=== PATIENT | female | born 1965 | race Caucasian/White ===

== ENCOUNTER 2016-09-30 21:43 | Inpatient (IN) | payer MEDICAID ==
[2016-09-30 21:45] VITALS: BP 191/81; PULSE 59; RESP 16; TEMP 98.3; O2SAT 100
--- NOTE | 2016-09-30 22:49 | RADRPT ---
EXAM DATE/TIME: 09/30/2016 22:21 [facility] COMPARISON: No previous studies available for comparison. INDICATIONS : Ankle pain, slip and fall. MEDICAL HISTORY : None. SURGICAL HISTORY : None. ENCOUNTER: Initial ACUITY: 1 day PAIN SCORE: 10/10 LOCATION: Right ankle FINDINGS: Superior portions of the posterior tubercle of the calcaneus is fractured, including the distal Achil les insertion. The fracture is mildly comminuted with the 2 main fracture fragments measuring 15 and 19 mm in size. There is superior angulation and approximately 2 cm of superior displacement. CONCLUSION: Comminuted, superiorly displaced fracture of the posterior calcaneus including the Achilles insertion . Popeye Bryant MD on September 30, 2016 at 22:46 Board Certified Radiologist. This report was verified electronically.
[2016-10-01 02:26] VITALS: BP 169/77; PULSE 58; RESP 16; O2SAT 100
[2016-10-01] MEDS ORDERED: SODIUM CHLOR 0.9% 1000 ML INJ 1,000 ML IV ONE (02:30)
[2016-10-01] MEDS ORDERED: ONDANSETRON HCL 4 MG/2 ML VIAL IV ONE (02:30)
[2016-10-01] MEDS ORDERED: MORPHINE SULFATE 4 MG/ML INJ IV PUSH ONE (02:30)
[2016-10-01 03:02] LABS: AUTOMATED NEUTROPHIL # 4.7 TH/MM3 (1.8-7.7); BASOPHIL # 0.1 TH/MM3 (0-0.2); EOSINOPHIL # 0.2 TH/MM3 (0-0.4); EOSINOPHIL % 1.9 % (0.0-4.0); HEMATOCRIT 32.3 % (35.0-46.0); HEMO FLAGS DIFF FINAL; LYMPH % 40.7 % (9.0-44.0); MEAN CELL VOLUME 83.4 FL (80.0-100.0); MEAN CORPUSCULAR HEMOGLOBIN 29.7 PG (27.0-34.0); MEAN CORPUSCULAR HGB CONC 35.6 % (32.0-36.0); MONO % 7.7 % (0.0-8.0); NEUT % 48.7 % (16.0-70.0); PLATELET COUNT 254 TH/MM3 (150-450); RED BLOOD COUNT 3.87 MIL/MM3 (4.00-5.30); RED CELL DISTRIBUTION WIDTH 13.5 % (11.6-17.2); WHITE BLOOD COUNT 9.7 TH/MM3 (4.0-11.0)
--- NOTE | 2016-10-01 03:08 | RADRPT ---
EXAM DATE/TIME: 10/01/2016 02:36 [facility] COMPARISON: No previous studies available for comparison. INDICATIONS : Right lower leg pain. MEDICAL HISTORY : None. SURGICAL HISTORY : None. ENCOUNTER: Subsequent ACUITY: 1 day PAIN SCORE: 5/10 LOCATION: Right lower leg. FINDINGS: The shafts of the tibia and fibular are intact. There is a comminuted and displaced fracture of the posterior superior calcaneus with 2 displaced fragments, the larger of which measures 2 cm. CONCLUSION: Posterior superior calcaneal fracture with 2 displaced fragments. Jamal Amin MD on October 01, 2016 at 3:06 Board Certified Radiologist. This report was verified electronically.
[2016-10-01 03:15] LABS: APTT (PATIENT) 25.8 SEC (24.3-30.1); INTERNATIONAL NORMALIZED RATIO 0.9 RATIO
--- NOTE | 2016-10-01 03:21 | PD ---
HPI Chief Complaint: Injury Time Seen by Provider: 02:24 Travel History International Travel<30 days: No Contact w/Intl Traveler<30days: No Traveled to known affect area: No History of Present Illness HPI The patient is a 50 year old female who presents to the [facility] emergency department with a history of reportedly tripping and falling yesterday between 3 and 4 PM. The patient reports that she was roughhousing with her child at a park when she stepped backwards into a rock and then her right foot went into a hole. She reports that she noticed 2 bumps on the back side of her ankle and was unable to weight-bear. She reports the pain increased with time. She reports that she took ibuprofen for the pain prior to arrival. The patient denies hitting her head or losing consciousness. She denies having any neck pain, other extremity pain, chest pain, chest pressure, shortness of breath, recent fevers, cough, congestion, or rhinorrhea. And otherwise on review of systems she denies having any abdominal pain, vomiting, diarrhea, urinary symptoms, or neurologic symptoms. FOR[facility]LY [facility] Past Medical History Narrative Medical The patient's past medical history is significant for gestational diabetes. The patient reports that she had chest pain 2 months ago related to stress and did have a cardiac workup done at another hospital including a stress test that was reportedly negative. Diabetes: Yes Patient Takes Glucophage: No Tetanus Vaccination: < 5 Years Influenza Vaccination: No ?: Not Past Surgical History Narrative Surgical The patient's past surgical history is significant for a times one, hysterectomy. Section: Yes Hysterectomy: Yes Social History Alcohol Use: No Tobacco Use: No Substance Use: No Allergies-Medications (Allergen,Severity, Reaction): Coded Allergies: No Known Allergies (Unverified , 10/01/16) Reported Meds & Prescriptions Reported Meds & Active Scripts Active No Active Prescriptions or Reported Medications Review of Systems Except as stated in HPI: all other systems reviewed are Neg General / Constitutional: No: Fever Eyes: No: Visual changes HENT: No: Headaches Cardiovascular: No: Chest Pain or Discomfort Respiratory: No: Shortness of Breath Gastrointestinal: No: Abdominal Pain Genitourinary: No: Dysuria Musculoskeletal: Positive: Arthralgias, Limited ROM, Edema, Pain Skin: No Rash Neurologic: No: Weakness Psychiatric: No: Depression Endocrine: No: Polydipsia Hematologic/Lymphatic: No: Easy Bruising Physical Exam Narrative General: The patient is a well-developed well-nourished female in no acute distress. Head and Neck exam: Head is normocephalic atraumatic. Eyes: EOMI, pupils are equal round and reactive to light. Nose: Midline septum with pink mucous membranes Mouth: Dentition unremarkable. Moist mucus membranes. Posterior oropharynx is not erythematous. No tonsillar hypertrophy. Uvula midline. Airway patent. Neck: No palpable lymphadenopathy. No nuchal rigidity. No thyromegaly. Cardiovascular: Regular rate and rhythm without murmurs, gallops, or rubs. Lungs: Clear to auscultation bilaterally. No wheezes, rhonchi, or rales. Abdomen: Soft, without tenderness to palpation in all 4 quadrants of the abdomen. No guarding, rebound, or rigidity. Normal bowel sounds are audible. No tenderness on palpation of McBurney's point. Extremities: No clubbing, cyanosis, or edema, except in the area of interest, the right foot , ankle, tib-fib area. At that site, the patient is noted to have swelling of the entire foot with ecchymosis developing along the posterior aspect of the ankle with tenderness on palpation of the calcaneus and the Achilles insertion. The patient has decreased range of motion noted. The patient reports having tenderness along the mid to lower aspect of the tib-fib area. 2+ pulses in all 4 extremities. The patient has soft compartments on palpation. The patient has intact sensation over all digits. The patient is able to wiggle her toes. Back: No spinous process tenderness to palpation. No costovertebral angle tenderness to palpation. Neurologic Exam: Grossly nonfocal. Skin Exam: No rash noted. Intact skin that is warm and dry. Data Data Last Documented VS Vital Signs Date Time Temp Pulse Resp B/P Pulse Ox O2 Delivery O2 Flow Rate FiO2 10/01/16 02:26 58 16 169/77 100 Room Air 09/30/16 21:45 98.3 Orders Ankle, Complete ([id number]) (09/30/16 22:05) Ice/Cold Pack (09/30/16 22:05) Electrocardiogram (10/01/16 02:26) Complete Blood Count With Diff (10/01/16 02:26) Comprehensive Metabolic Panel (10/01/16 02:26) Prothrombin Time / Inr (Pt) (10/01/16 02:26) Act Partial Throm Time (Ptt) (10/01/16 02:26) Iv Access Insert/Monitor (10/01/16 02:26) Ecg Monitoring (10/01/16 02:26) Oximetry (10/01/16 02:26) Morphine Inj (Morphine Inj) (10/01/16 02:30) Ondansetron Inj (Zofran Inj) (10/01/16 02:30) Sodium Chlor 0.9% 1000 Ml Inj (Ns 1000 M (10/01/16 02:30) Tibia/Fibula (Ap/Lat) (10/01/16 02:37) Splint Or Brace Apply/Monitor (10/01/16 03:21) Admit Order (Ed Use Only) (10/01/16 04:03) Labs Laboratory Tests Test 10/01/16 02:42 White Blood Count 9.7 TH/MM3 Red Blood Count 3.87 MIL/MM3 Hemoglobin 11.5 GM/DL Hematocrit 32.3 % Mean Corpuscular Volume 83.4 FL Mean Corpuscular Hemoglobin 29.7 PG Mean Corpuscular Hemoglobin 35.6 % Concent Red Cell Distribution Width 13.5 % Platelet Count 254 TH/MM3 Mean Platelet Volume 9.0 FL Neutrophils (%) (Auto) 48.7 % Lymphocytes (%) (Auto) 40.7 % Monocytes (%) (Auto) 7.7 % Eosinophils (%) (Auto) 1.9 % Basophils (%) (Auto) 1.0 % Neutrophils # (Auto) 4.7 TH/MM3 Lymphocytes # (Auto) 4.0 TH/MM3 Monocytes # (Auto) 0.7 TH/MM3 Eosinophils # (Auto) 0.2 TH/MM3 Basophils # (Auto) 0.1 TH/MM3 CBC Comment DIFF FINAL Differential Comment Prothrombin Time 10.0 SEC Prothromb Time International 0.9 RATIO Ratio Activated Partial 25.8 SEC Thromboplast Time Sodium Level 136 MEQ/L Potassium Level 3.6 MEQ/L Chloride Level 104 MEQ/L Carbon Dioxide Level 24.4 MEQ/L Anion Gap 8 MEQ/L Blood Urea Nitrogen 20 MG/DL Creatinine 0.87 MG/DL Estimat Glomerular Filtration 69 ML/MIN Rate Random Glucose 293 MG/DL Calcium Level 8.5 MG/DL Total Bilirubin 0.2 MG/DL Aspartate Amino Transf 14 U/L (AST/SGOT) Alanine Aminotransferase 20 U/L (ALT/SGPT) Alkaline Phosphatase 138 U/L Total Protein 7.1 GM/DL Albumin 3.2 GM/DL MDM Medical Decision Making Medical Screen Exam Complete: Yes Emergency Medical Condition: Yes Medical Record Reviewed: Yes Interpretation(s) Last Impressions Tibia/Fibula X-Ray 10/01/16 [id number] Signed Impressions: Service Date/Time: Saturday, October 01, 2016 02:36 - CONCLUSION: Posterior superior calcaneal fracture with 2 displaced fragments. Jamal Amin MD Ankle X-Ray 09/30/169 Signed Impressions: Service Date/Time: Friday, September 30, 2016 22:21 - CONCLUSION: Comminuted, superiorly displaced fracture of the posterior calcaneus including the Achilles insertion. Popeye Bryant MD Differential Diagnosis Calcaneus fracture, versus distal tib-fib fracture, versus ankle dislocation, versus contusion, versus Achilles tendon rupture Narrative Course During the course of the patients emergency department visit, the patients history, examination, and differential diagnosis were reviewed with the patient. The patient had IV access obtained and blood work sent for analysis. The patient was placed on a food safety technician with oximetry and blood pressure monitoring. The patient was initially provided morphine for pain, Zofran for nausea, normal saline IV fluids were started. The patients laboratory studies were reviewed and remarkable for a white count of 9.7, hemoglobin 11.5, platelets 254 with neutrophils 48.7, lymphocytes 40.7. CMP is remarkable for a BUN of 20, glucose 293, AST 14, alkaline phosphatase 138, albumin 3.2, PT 10, 5.8. Radiology studies were reviewed and remarkable for a tib-fib x-ray that shows a posterior superior calcaneal fracture with 2 displaced fragments, ankle x-ray reveals a comminuted superiorly displaced fracture of the posterior calcaneus including the Achilles insertion. The patients results were discussed with the patient, including the plan of care. I explained that further testing and/ or monitoring is indicated based on the patients history, examination, and/ or laboratory findings. Therefore, I recommended admission for additional evaluation. The patient expressed understanding and was agreeable with this plan. The patient was admitted to the hospital in stable condition and sent to a bed under the care of the [facility] [address] hospitalist service. Physician Communication Physician Communication The patient's case was discussed with the physician office manager executive assistant for Dr. Bach. He did agree to see the patient in consultation. At this point he is unsure based on the patient's x-ray whether the patient would require surgical repair. He was agreeable with the plan for the patient to be observed and her first pain controlled. He requested that the patient be admitted to the hospitalist service. The patient's case was discussed with Dr. Bean who did agree to admit the patient for further evaluation and treatment at this time. Diagnosis Primary Impression: Right calcaneal fracture Qualified Code: S92.001A - Closed displaced fracture of right calcaneus, unspecified portion of calcaneus, initial encounter Additional Impression: Hyperglycemia due to type 2 diabetes mellitus Qualified Code: E11.65 - Type 2 diabetes mellitus with hyperglycemia, unspecified longterm insulin use status Admitting Information Admitting Physician Requests: Observation Scripts No Active Prescriptions or Reported Meds Viry Rnadall MD Oct 01, 2016 03:21
[2016-10-01 03:32] LABS: ALKALINE PHOSPHATASE 138 U/L (45-117); TOTAL BILIRUBIN ADULT 0.2 MG/DL (0.2-1.0)
[2016-10-01 03:38] LABS: ALT (GPT) 20 U/L (10-53); ANION GAP 8 MEQ/L (5-15); AST (GOT) 14 U/L (15-37); BICARBONATE 24.4 MEQ/L (21.0-32.0); BLOOD UREA NITROGEN 20 MG/DL (7-18); CHLORIDE 104 MEQ/L (98-107); GLOMERULAR FILTRATION RATE 69 ML/MIN (>89); POTASSIUM 3.6 MEQ/L (3.5-5.1); SODIUM (NA) 136 MEQ/L (136-145)
[2016-10-01 04:00] VITALS: BP 151/92; PULSE 62; RESP 16; O2SAT 99
[2016-10-01] MEDS ORDERED: SODIUM CHLORIDE 0.9% FLUSH 10 ML FLUSH IV FLUSH PRN (05:15)
[2016-10-01] MEDS ORDERED: NALOXONE HCL 0.4 MG/ML AMP IV PRN ×2 (05:15→09:15)
[2016-10-01 05:53] LABS: CREATINE KINASE 24 U/L (26-192)
[2016-10-01 06:30] VITALS: BP 144/70; PULSE 60; RESP 16; O2SAT 99
[2016-10-01] MEDS ORDERED: ACETAMINOPHEN 1000 MG/100 ML VIAL IV ONE (07:24)
[2016-10-01] MEDS ORDERED: ceFAZolin 2 GM PREMIX 50 ML ONE (08:08)
[2016-10-01] MEDS ORDERED: GENTAMICIN SULFATE 80 MG/2 ML VIAL ONE (08:08)
[2016-10-01] MEDS ORDERED: VANCOMYCIN HCL 1000 MG VIAL ONE (08:08)
[2016-10-01] MEDS ORDERED: SODIUM CHLOR 0.9% 250 ML INJ 250 ML ONE (08:08)
[2016-10-01] MEDS ORDERED: HYDR-3580 PO (08:38)
[2016-10-01] MEDS ORDERED: WALKER/ADULT/FO1 MIS (08:38)
[2016-10-01] MEDS ORDERED: GENTAMICIN SULFATE 80 MG/2 ML VIAL IRRIGATION ONE (08:39)
[2016-10-01] MEDS ORDERED: SODIUM CHLORIDE 0.9% FLUSH 10 ML FLUSH IV FLUSH SCH (09:00)
[2016-10-01] MEDS ORDERED: ACETAMINOPHEN 325 MG TAB PO PRN ×2 (09:15)
[2016-10-01] MEDS ORDERED: GLUCAGON 1 MG/ML VIAL OTHER PRN (09:15)
[2016-10-01] MEDS ORDERED: MORPHINE SULFATE 4 MG/ML INJ IV PRN (09:15)
[2016-10-01] MEDS ORDERED: ACETAMINOPHEN/HYDROcodone 325 MG/10 MG TAB PO PRN (09:15)
[2016-10-01] MEDS ORDERED: MAGNESIUM HYDROXIDE SUSP 30 ML CUP PO PRN (09:15)
[2016-10-01] MEDS ORDERED: DEXTROSE 50% IN WATER 50 ML VIAL(D50) IV PRN (09:15)
[2016-10-01] MEDS ORDERED: LACTULOSE SYRUP 20 GM/30 ML CUP PO PRN (09:15)
[2016-10-01] MEDS ORDERED: ACETAMINOPHEN/HYDROcodone 325 MG/5 MG TAB PO PRN (09:15)
[2016-10-01] MEDS ORDERED: SENNOSIDES 8.6 MG TAB PO PRN (09:15)
[2016-10-01] MEDS ORDERED: ONDANSETRON HCL 4 MG/2 ML VIAL IVP PRN (09:15)
--- NOTE | 2016-10-01 09:24 | RADRPT ---
EXAM DATE/TIME: 10/01/2016 09:03 [facility] COMPARISON: ANKLE RIGHT COMPLETE ([id number]), September 30, 2016, 22:21. INDICATIONS : Right heel open reduction internal fixation. MEDICAL HISTORY : None. SURGICAL HISTORY : None. ENCOUNTER: Subsequent ACUITY: 1 day PAIN SCORE: Non-responsive. LOCATION: Right heel. FINDINGS: AP and lateral views of the calcaneus were obtained and demonstrate multiple lag screws transfixing t he posterior calcaneal fracture. The fracture fragments are in near-anatomic alignment. There is soft tissue swelling. CONCLUSION: Status post open rigid internal fixation. Michael Scott MD on October 01, 2016 at 9:22 Board Certified Radiologist. This report was verified electronically.
[2016-10-01] MEDS ORDERED: SODIUM CHLORIDE 0.9% FLUSH 5 ML FLUSH IVF PRN (09:30)
[2016-10-01] MEDS ORDERED: diphenhydrAMINE HCL 25 MG CAP PO PRN ×2 (09:30)
[2016-10-01] MEDS ORDERED: Post-op Orders (for Pharmacy) MISC XX ONE (09:30)
--- NOTE | 2016-10-01 09:32 | PD.OP ---
cc: Davey Bach MD Operative Report Date of Surgery: Oct 01, 2016 Preoperative Diagnosis: Displaced right calcaneus fracture Postoperative Diagnosis: Procedure: ORIF right calcaneus Anesthesia: Gen. Surgeon: Davey Bach Primer Inspector(s): TOBY Barry PA-C The surgical procedure was assisted by my physician sound assistant. My P.A. presence was necessary throughout this case for the manipulation and positioning of the surgical extremity. My P.A. was assisting me throughout the duration of this procedure. The skill set of a physician sound assistant was medically necessary to complete this procedure. During the surgical case the surgical scheduler was working at the back table and the physician sound assistant was directly assisting me. Operation and Findings: Informed consent obtained, operative site was marked. The foot and ankle were seen and evaluated this morning. Soft tissue swelling had significantly improved and appeared to be ready for surgery. SHe was brought to the operating room and placed on the operating room table. she was given intravenous sedation , general endotracheal anesthesia. He received IV antibiotics and was placed in the lateral decubitus position. The right Foot and leg were prepped with alcohol, followed by Hibiclens, draped in usual sterile fashion. A time out procedure was preformed. The procedure began with a attempt at percutaneous reduction of fracture. 2 small incisions were made above and below fracture. A fracture tenaculum was placed around the fracture fragments. The fracture was gently manipulated. The fracture was irreducible. There appeared to be soft tissue within the fracture site. Next a 3 cm incision over the lateral aspect of the calcaneus directly over the fracture site. A [place] elevator was used to clean the fracture site. Soft tissue was swept out of the way. A fracture tenaculum was now placed again and the fracture reduced into excellent alignment. 3 guidepins for the Synthes 4.0 Screws were now placed along the tuberosity fragment. Guide pins were advanced across the fracture site towards the plantar aspect of the calcaneus. Fluoroscopy confirmed appropriate guidepin placement. Screw lengths were measured. Cannulated drill was placed over each of the pins. 3 appropriate length cannulated screws were now placed. Good compression was obtained. K-wires were removed. Final fluoroscopy well- aligned fracture with well-placed hardware. Incision was thoroughly irrigated. She skin and subcutaneous tissue closed with 3-0 Vicryl and 3-0 nylon in vertical mattress fashion. Sterile dressings were applied the patient was placed into a well molded padded splint. The patient was transferred to the Recovery Room in stable condition. Davey Bach MD Oct 01, 2016 09:32
[2016-10-01] MEDS ORDERED: DO NOT ADM ANY ANTICOAGULANT DRUGS PRN (09:35)
[2016-10-01] MEDS ORDERED: *morphine SULFATE 8 MG/ML PERIprocedure ONLY ONE ×2 (09:44→10:10)
[2016-10-01] MEDS ORDERED: MIDAZOLAM HCL 2 MG/2 ML VIAL ONE (09:45)
[2016-10-01] MEDS ORDERED: fentaNYL CITRATE 250 MCG/5 ML AMP ONE (09:45)
--- NOTE | 2016-10-01 09:59 | MB ---
cc: NANCY CAT DATE OF CONSULTATION 10/01/2016 DATE OF ADMISSION 09/30/2016 REASON FOR CONSULTATION Right calcaneus fracture. HISTORY Danyell is a 50-year female who presented to the emergency room with right ankle and foot pain. She states that approximately four days ago, she was playing with her children. She stepped backboard. She felt an immediate pop in the back of her right ankle. She initially thought it was a sprain. She has been walking on it at home. The pain had not improved so she presented to the emergency room. X-rays revealed a right calcaneus fracture. She is currently in the emergency department. She is awake and alert. Her only complaint is her right ankle and foot. She denies any dizziness, syncope or loss of consciousness.. PAST MEDICAL HISTORY ILLNESSES A history of gestational diabetes. SURGERIES 1. 2. Hysterectomy ALLERGIES NO KNOWN DRUG ALLERGIES. MEDICATIONS None prior to the hospitalization. SOCIAL HISTORY The patient denies alcohol, tobacco or drug use. FAMILY HISTORY Noncontributory REVIEW OF SYSTEMS The patient denies headache, visual changes, neck pain, chest pain, shortness of breath, abdominal pain, nausea, vomiting, recent weight loss. She complains of right ankle pain. Pain is worse with movement. PHYSICAL EXAMINATION The patient is a pleasant 50-year female in no acute distress. She is awake and alert. She is alert and x3. She appears well-developed and well-nourished. VITAL SIGNS: Temperature 98.3, pulse 60, respirations 16, blood pressure 144/70, O2 sat 99% on room air. HEAD: The patient is normocephalic. EYES, EARS, NOSE AND THROAT: Pupils are equal. NECK: Soft and nontender. Trachea is midline. ABDOMEN: Soft, nontender, nondistended. EXTREMITIES: Examination of the bilateral upper extremities shows no pain with shoulder, elbow or wrist motion. She has intact sensation in all fingers. She has good cap refill in all fingers. Skin is intact. Examination of the left leg reveals no pain with hip, knee or ankle motion. Skin is intact. Dorsalis pedis pulses palpable. Sensation is intact. Examination of the right leg reveals no pain around her hip or knee. She has mild swelling around the ankle and foot. Skin is intact. She has a palpable fracture line along the posterior calcaneus. There is mild tension on the skin posteriorly. Dorsalis pedis pulse is palpable. Sensation is intact in the right foot. She has good cap refill in her toes. X-RAYS X-rays of the right foot were reviewed. X-rays reveal a fracture of the posterior tuberosity of the calcaneus with displacement. IMPRESSION 1. History of gestational diabetes. 2. Right posterior tuberosity calcaneus fracture. PLAN Treatment options were discussed the patient. At this point, I would recommend open reduction, internal fixation of right calcaneus fracture. At this point, the soft tissue appears to be amenable to surgery. The risks of surgery include bleeding, infection, injury to arteries, nerves and blood vessels, nonunion, malunion, painful hardware, wound complications, wound infection, as well as medical complications including blood clot, stroke, heart attack and . The patient understands that she will need to be extremely careful with her foot. She cannot bear weight. If she does walk or bear weight, she will likely displace the fractures. All questions were answered. I will plan on surgery today. A mid-level provider in my office (nurse practitioner or physician licensed sales assistant) may see this patient on follow-up visits and continue to implement the objectives of this plan including: Starting or adjusting medications, injections , cast application, orthotics, brace application, physical therapy, radiological studies (including x-ray, MRI, CT, ultrasound, bone scan), vascular studies, neurologic studies, specialist consultation, and proceeding with surgical management, as appropriate. MD ROCHELLE Dorsey/RON /9:33 AM /9:47 AM SHARLENE
[2016-10-01] MEDS: LACTATED RINGER'S 1000 ML INJ 1,000 ML IV SCH ×2 (10:50→15:43)
[2016-10-01] MEDS: INSULIN ASPART SUPPLEMENTAL SCALE SQ SCH ×3 (11:15→22:55)
[2016-10-01] MEDS ORDERED: LACTATED RINGER'S 1000 ML INJ 1,000 ML IV ONE (12:00)
[2016-10-01] MEDS ORDERED: ePHEDrine/NS 25 MG/5 ML SYR IV ONE (12:00)
[2016-10-01] MEDS ORDERED: NEOSTIGMINE 3 MG/3 ML SYR IV ONE (12:00)
[2016-10-01] MEDS ORDERED: ONDANSETRON HCL 4 MG/2 ML VIAL IV PUSH ONE (12:00)
[2016-10-01] MEDS ORDERED: PROPOFOL 200 MG/20 ML AMP IV ONE (12:00)
[2016-10-01] MEDS ORDERED: INSULIN ASPART 1,000 UNITS/10 ML VIAL SQ ONE (15:00)
--- NOTE | 2016-10-01 15:05 | EKG ---
Date Performed: 10/01/2016 Time Performed: 02:57:23 PTAGE: 50 years EKG: PROBABLE Sinus rhythm WITH OCCASIONAL SUPRAVENTRICULAR PREMATURE COMPLEXES NONSPECIFIC T-WAVE ABNORMALITY BORDERLINE ECG NO PREVIOUS TRACING DOCTOR: Godwin Contreras Interpretating Date/Time 10/01/2016 15:04:42
[2016-10-01] MEDS: ceFAZolin 2 GM PREMIX 50 ML IV SCH ×2 (15:20→23:38)
--- NOTE | 2016-10-01 15:59 | HHI.HP ---
HPI Service [facility] Hospitalists Primary Care Physician No Primary Care Physician Admission Diagnosis right calcaneous fracture Diagnoses: Chief Complaint: Right foot pain Travel History International Travel<30 Days: No Contact w/Intl Traveler <30 Da: No Traveled to Known Affected Are: No History of Present Illness This a 50 year old female who presents to the [facility] emergency department with a history of reportedly tripping and falling yesterday afternoon around 3 and 4 PM. The patient reports that she was playing with her child at a park. She stepped backwards into a rock and then her right foot went into a hole. She then complained of progressive pain affecting her right ankle and foot. It is worse with pressure. She reports that she took ibuprofen for the pain prior to arrival. Denies any other injuries. All other systems reviewed negative. She sustained a calcaneal fracture underwent ORIF. At this time she seen in the PACU, denies any pain. She received a nerve block. She also was given 1100 mL crystalloid and had EBL of < 50 mL. Anesthesia records reviewed she was hemodynamically stable Review of Systems Except as stated in HPI: all other systems reviewed are Neg Past Family Social History Past Medical History As previously mentioned Past Surgical History Hysterectomy Reported Medications None Allergies: Coded Allergies: No Known Allergies (Unverified , 10/01/16) Family History Denies diabetes Social History Does not smoke or drink Physical Exam Vital Signs Vital Signs Date Time Temp Pulse Resp B/P Pulse Ox O2 Delivery O2 Flow Rate FiO2 10/01/16 14:00 76 16 133/73 96 Nasal Cannula 2 10/01/16 12:00 94 16 114/78 97 Nasal Cannula 2 10/01/16 11:30 84 16 149/77 96 Nasal Cannula 2 10/01/16 11:00 90 16 146/76 96 Nasal Cannula 2 10/01/16 10:45 88 16 153/76 96 Nasal Cannula 2 10/01/16 10:30 84 16 145/82 96 Nasal Cannula 2 10/01/16 10:15 80 16 137/80 96 Nasal Cannula 2 10/01/16 10:00 86 16 140/81 96 Nasal Cannula 2 10/01/16 09:45 96 16 137/80 95 Nasal Cannula 2 10/01/16 09:35 97.8 94 16 136/79 93 Nasal Cannula 2 10/01/16 06:30 60 16 144/70 99 Room Air 10/01/16 04:00 62 16 151/92 99 Room Air 10/01/16 02:26 58 16 169/77 100 Room Air 10/01/16 02:22 Room Air 09/30/16 21:45 98.3 59 16 191/81 100 Physical Exam GENERAL: This is a well-nourished, well-developed patient, in no apparent distress. SKIN: No rashes, ecchymoses or lesions. Cool and dry. HEAD: Atraumatic. Normocephalic. No temporal or scalp tenderness. EYES: Pupils equal round and reactive. Extraocular motions intact. No scleral icterus. No injection or drainage. ENT: Nose without bleeding, purulent drainage or septal hematoma. Throat without erythema, tonsillar hypertrophy or exudate. Uvula midline. Airway patent. NECK: Trachea midline. No JVD or lymphadenopathy. Supple, nontender, no meningeal signs. CARDIOVASCULAR: Regular rate and rhythm without murmurs, gallops, or rubs. RESPIRATORY: Clear to auscultation. Breath sounds equal bilaterally. No wheezes , rales, or rhonchi. GASTROINTESTINAL: Abdomen soft, non-tender, nondistended.No guarding. MUSCULOSKELETAL: Extremities without clubbing, cyanosis, or edema. Right lower extremity in a cast NEUROLOGICAL: Awake and alert. Cranial nerves II through XII intact. Motor and sensory grossly within normal limits. Five out of 5 muscle strength in all muscle groups. Normal speech. Laboratory EKG tracing interpreted by me with sinus rhythm no acute ST-T changes Laboratory Tests Test 10/01/16 02:42 White Blood Count 9.7 Red Blood Count 3.87 Hemoglobin 11.5 Hematocrit 32.3 Mean Corpuscular Volume 83.4 Mean Corpuscular Hemoglobin 29.7 Mean Corpuscular Hemoglobin 35.6 Concent Red Cell Distribution Width 13.5 Platelet Count 254 Mean Platelet Volume 9.0 Neutrophils (%) (Auto) 48.7 Lymphocytes (%) (Auto) 40.7 Monocytes (%) (Auto) 7.7 Eosinophils (%) (Auto) 1.9 Basophils (%) (Auto) 1.0 Neutrophils # (Auto) 4.7 Lymphocytes # (Auto) 4.0 Monocytes # (Auto) 0.7 Eosinophils # (Auto) 0.2 Basophils # (Auto) 0.1 CBC Comment DIFF FINAL Differential Comment Prothrombin Time 10.0 Prothromb Time International 0.9 Ratio Activated Partial 25.8 Thromboplast Time Sodium Level 136 Potassium Level 3.6 Chloride Level 104 Carbon Dioxide Level 24.4 Anion Gap 8 Blood Urea Nitrogen 20 Creatinine 0.87 Estimat Glomerular Filtration 69 Rate Random Glucose 293 Calcium Level 8.5 Total Bilirubin 0.2 Aspartate Amino Transf 14 (AST/SGOT) Alanine Aminotransferase 20 (ALT/SGPT) Alkaline Phosphatase 138 Total Creatine Kinase 24 Total Protein 7.1 Albumin 3.2 Result Diagram: 10/01/16 0242 10/01/16 0242 Imaging Last Impressions Tibia/Fibula X-Ray 10/01/16 0237 Signed Impressions: Service Date/Time: Saturday, October 01, 2016 02:36 - CONCLUSION: Posterior superior calcaneal fracture with 2 displaced fragments. Jamal Amin MD Foot X-Ray 10/01/16 0000 Signed Impressions: Service Date/Time: Saturday, October 01, 2016 09:03 - CONCLUSION: Status post open rigid internal fixation. Michael Scott MD Ankle X-Ray 09/30/165 Signed Impressions: Service Date/Time: Friday, September 30, 2016 22:21 - CONCLUSION: Comminuted, superiorly displaced fracture of the posterior calcaneus including the Achilles insertion. Popeye Bryant MD Assessment and Plan Problem List: (1) Right calcaneal fracture ICD Code: S92.001A Status: Acute (2) Hyperglycemia due to type 2 diabetes mellitus ICD Code: E11.65 Status: Acute Assessment and Plan This a 50 year old female who presents with right foot/ankle pain after a fall. She has sustained a comminuted displaced calcaneal fracture image interpreted by me and underwent ORIF. She is hemodynamically stable. Continue postoperative care with PT, wound care, incentive spirometry and pain management with Lortab and IV morphine Diabetes mellitus. Uncontrolled. Monitor fingersticks with sliding scale coverage. Obtain A1c. Diabetic education Normocytic normochromic anemia hemoglobin 11.5. No gross bleeding. Monitor DVT prophylaxis with SCD and early ambulation. Pharmacological prophylaxis per orthopedic surgery Discussed Condition With Patient Physician Certification 2 Midnight Certification Type: Admission for Inpatient Services Order for Inpatient Services The services are ordered in accordance with Medicare regulations or non- Medicare payer requirements, as applicable. In the case of services not specified as inpatient-only, they are appropriately provided as inpatient services in accordance with the 2-midnight benchmark. Estimated LOS (days): 2 days is the estimated time the patient will need to remain in the hospital, assuming treatment plan goals are met and no additional complications. Post-Hospital Plan: Home Health Problem Qualifiers (1) Right calcaneal fracture: Qualified Code: S92.001A - Closed displaced fracture of right calcaneus, unspecified portion of calcaneus, initial encounter (2) Hyperglycemia due to type 2 diabetes mellitus: Qualified Code: E11.65 - Type 2 diabetes mellitus with hyperglycemia, unspecified residential insulin use status Joe Puri MD Oct 01, 2016 15:59
[2016-10-01] MEDS: ACETAMINOPHEN/HYDROcodone 325 MG/10 MG TAB PO PRN (17:23)
--- NOTE | 2016-10-01 17:59 | HHI.DCPOC ---
Discharge Care Plan Diagnosis: (1) Hyperglycemia due to type 2 diabetes mellitus (2) Right calcaneal fracture Your Health Problems Are: Difficulty with ADL Exercise Tolerance Chronic Pain Goals to Promote Your Health * To prevent worsening of your condition and complications * To maintain your health at the optimal level Directions to Meet Your Goals Take your medications as prescribed Follow your dietary instruction Follow activity as directed Keep your appointments as scheduled Take your immunizations and boosters as scheduled If your symptoms worsen call your PCP, if no PCP go to Urgent Care Center or Emergency Room Smoking is Dangerous to Your Health. Avoid second hand smoke Call the 24-hour hour crisis hotline for domestic abuse at Joe Puri MD Oct 01, 2016 17:59
[2016-10-01 19:00] VITALS: BP 155/75; PULSE 64; RESP 16; TEMP 97.3; O2SAT 97
[2016-10-01 19:01] VITALS: BP 139/79; PULSE 73; RESP 19; TEMP 98; O2SAT 100
[2016-10-01 19:23] VITALS: O2SAT 99
[2016-10-01] MEDS: MORPHINE SULFATE 4 MG/ML INJ IV PUSH PRN (20:25)
[2016-10-01] MEDS: VANCOMYCIN INJ 1,000 MG in SODIUM CHLOR 0.9% 250 ML INJ 250 ML IV SCH (20:25)
[2016-10-01] MEDS: DOCUSATE SODIUM 50 MG/SENNA 8.6 MG TAB PO SCH (20:26)
[2016-10-01] MEDS: SODIUM CHLORIDE 0.9% FLUSH 5 ML FLUSH IVF SCH (20:28)
[2016-10-01 22:53] LABS: HEMOGLOBIN A1a 0.8 %; HEMOGLOBIN A1b 2.7 %; HEMOGLOBIN Ao 76.9 %; HEMOGLOBIN LA1C 2.8 %; HEMOGLOBIN P3 5.1 %
[2016-10-02] VITALS: BP 152/94; PULSE 62; RESP 18; TEMP 97.4; O2SAT 100
[2016-10-02 04:00] VITALS: BP 140/72; PULSE 60; RESP 17; TEMP 98; O2SAT 100
[2016-10-02] MEDS: INSULIN ASPART SUPPLEMENTAL SCALE SQ SCH ×2 (06:35→13:13)
[2016-10-02] MEDS: MORPHINE SULFATE 4 MG/ML INJ IV PUSH PRN (06:40)
[2016-10-02 07:40] LABS: AUTOMATED NEUTROPHIL # 9.9 TH/MM3 (1.8-7.7); BASOPHIL # 0.1 TH/MM3 (0-0.2); BASOPHIL % 0.4 % (0.0-2.0); EOSINOPHIL # 0.1 TH/MM3 (0-0.4); EOSINOPHIL % 0.6 % (0.0-4.0); HEMO FLAGS DIFF FINAL; LYMPH % 22.4 % (9.0-44.0); LYMPHOCYTE # 3.2 TH/MM3 (1.0-4.8); MEAN CELL VOLUME 84.1 FL (80.0-100.0); MEAN CORPUSCULAR HEMOGLOBIN 29.9 PG (27.0-34.0); MEAN CORPUSCULAR HGB CONC 35.5 % (32.0-36.0); MONO % 7.7 % (0.0-8.0); NEUT % 68.9 % (16.0-70.0); PLATELET COUNT 240 TH/MM3 (150-450); RED BLOOD COUNT 3.32 MIL/MM3 (4.00-5.30); RED CELL DISTRIBUTION WIDTH 13.7 % (11.6-17.2); WHITE BLOOD COUNT 14.4 TH/MM3 (4.0-11.0)
--- NOTE | 2016-10-02 07:52 | PD.ORT.PN ---
Subjective Subjective Remarks POD 1 s/p Perc fixation right calcaneus -doign well. reports pain but controlled with meds Objective Vitals Vital Signs Date Time Temp Pulse Resp B/P Pulse Ox O2 Delivery O2 Flow Rate FiO2 10/02/16 04:00 98.0 60 17 140/72 100 10/02/16 00:00 97.4 62 18 152/94 100 10/01/16 19:23 99 21 10/01/16 19:09 Room Air 10/01/16 19:01 98.0 73 19 139/79 100 10/01/16 19:00 97.3 64 16 155/75 97 10/01/16 18:00 72 16 111/71 96 Nasal Cannula 2 10/01/16 16:00 72 16 127/69 96 Nasal Cannula 2 10/01/16 14:00 76 16 133/73 96 Nasal Cannula 2 10/01/16 12:00 94 16 114/78 97 Nasal Cannula 2 10/01/16 11:30 84 16 149/77 96 Nasal Cannula 2 10/01/16 11:00 90 16 146/76 96 Nasal Cannula 2 10/01/16 10:45 88 16 153/76 96 Nasal Cannula 2 10/01/16 10:30 84 16 145/82 96 Nasal Cannula 2 10/01/16 10:15 80 16 137/80 96 Nasal Cannula 2 10/01/16 10:00 86 16 140/81 96 Nasal Cannula 2 10/01/16 09:45 96 16 137/80 95 Nasal Cannula 2 10/01/16 09:35 97.8 94 16 136/79 93 Nasal Cannula 2 I/O 10/01/16 10/01/16 10/01/16 10/02/16 10/02/16 10/02/16 07:00 15:00 23:00 07:00 15:00 23:00 Intake Total 330 ml 1458 ml 712 ml Output Total 300 ml 300 ml Balance 30 ml 1158 ml 712 ml Intake Oral 230 ml 710 ml 480 ml IV Total 100 ml 748 ml 232 ml Output Urine Total 300 ml 300 ml # Voids 0 0 # Bowel Movements 0 0 Result Diagram: 10/02/16 0712 10/01/16 0242 Objective Remarks RLE: +short leg splint. intact. good repair. nvi. Assessment & Plan Assessment and Plan 1) Right calcaneus fx s/p perc fixation - POD 1 -NWB -maintain splint at all times -elevate for swelling -pain control with norco -ortho cleared for DC home today -f/u with Kajal or EDGAR in 2 weeks Brian Cheng Oct 02, 2016 07:52
[2016-10-02 07:56] LABS: PROTHROMBIN TIME - PATIENT 10.6 SEC (9.8-11.6)
[2016-10-02 08:00] VITALS: BP 168/84; PULSE 65; RESP 18; TEMP 97.7; O2SAT 96
[2016-10-02] MEDS: ceFAZolin 2 GM PREMIX 50 ML IV SCH (08:07)
[2016-10-02] MEDS: VANCOMYCIN INJ 1,000 MG in SODIUM CHLOR 0.9% 250 ML INJ 250 ML IV SCH (08:07)
[2016-10-02] MEDS: DOCUSATE SODIUM 50 MG/SENNA 8.6 MG TAB PO SCH (08:08)
[2016-10-02] MEDS: SODIUM CHLORIDE 0.9% FLUSH 5 ML FLUSH IVF SCH (08:08)
[2016-10-02 08:09] LABS: BICARBONATE 27.7 MEQ/L (21.0-32.0); POTASSIUM 3.8 MEQ/L (3.5-5.1)
[2016-10-02] MEDS ORDERED: DOCU100C PO (09:00)
[2016-10-02] MEDS: ACETAMINOPHEN/HYDROcodone 325 MG/10 MG TAB PO PRN (09:48)
[2016-10-02 12:00] VITALS: BP 125/67; PULSE 59; RESP 18; TEMP 97.8; O2SAT 93
[2016-10-02] MEDS ORDERED: METF500T PO (12:15)
--- NOTE | 2016-10-02 12:17 | HHI.DCPOC ---
Discharge Care Plan Diagnosis: (1) Right calcaneal fracture (2) Hyperglycemia due to type 2 diabetes mellitus Goals to Promote Your Health * To prevent worsening of your condition and complications * To maintain your health at the optimal level Directions to Meet Your Goals Maintain a diabetic diet For constipation due to pain medication, recommend [id number] MiraLAX and/ or Senokot Non weight bearing right lower extremity, maintain splint at all times, elevate leg for swelling Follow-up with Dr. Rdz or the PA in 2 weeks Take your medications as prescribed Follow your dietary instruction Follow activity as directed Keep your appointments as scheduled Take your immunizations and boosters as scheduled If your symptoms worsen call your PCP, if no PCP go to Urgent Care Center or Emergency Room Smoking is Dangerous to Your Health. Avoid second hand smoke Call the 24-hour hour crisis hotline for domestic abuse at Cristel Hays Oct 02, 2016 12:17
--- NOTE | 2016-10-02 12:26 | HHI.DS ---
Discharge Summary Admission Date Oct 01, 2016 at 05:05 Discharge Date: Oct 02, 2016 Admitting Diagnosis right calcaneus fracture (1) Right calcaneal fracture ICD Code: S92.001A (2) Hyperglycemia due to type 2 diabetes mellitus ICD Code: E11.65 Procedures 10/01/16 ORIF right calcaneus Brief History - From Admission This a 50 year old female who presents to the [facility] emergency department with a history of reportedly tripping and falling yesterday afternoon around 3 and 4 PM. The patient reports that she was playing with her child at a park. She stepped backwards into a rock and then her right foot went into a hole. She then complained of progressive pain affecting her right ankle and foot. It is worse with pressure. She reports that she took ibuprofen for the pain prior to arrival. Denies any other injuries. All other systems reviewed negative. She sustained a calcaneal fracture underwent ORIF. At this time she seen in the PACU, denies any pain. She received a nerve block. She also was given 1100 mL crystalloid and had EBL of < 50 mL. Anesthesia records reviewed she was hemodynamically stable CBC/BMP: 10/02/16 0712 10/02/16 0712 Significant Findings Laboratory Tests Test 10/01/16 10/02/16 02:42 07:12 Red Blood Count 3.87 MIL/MM3 3.32 MIL/MM3 (4.00-5.30) (4.00-5.30) Hemoglobin 11.5 GM/DL 9.9 GM/DL (11.6-15.3) (11.6-15.3) Hematocrit 32.3 % 28.0 % (35.0-46.0) (35.0-46.0) Blood Urea Nitrogen 20 MG/DL (7-18) Estimat Glomerular Filtration 69 ML/MIN (>89) Rate Random Glucose 293 MG/DL 150 MG/DL (74-106) (74-106) Hemoglobin A1c 10.7 % (4.3-6.0) Aspartate Amino Transf 14 U/L (15-37) (AST/SGOT) Alkaline Phosphatase 138 U/L (45-117) Total Creatine Kinase 24 U/L (26-192) Albumin 3.2 GM/DL (3.4-5.0) White Blood Count 14.4 TH/MM3 (4.0-11.0) Neutrophils # (Auto) 9.9 TH/MM3 (1.8-7.7) Monocytes # (Auto) 1.1 TH/MM3 (0-0.9) Calcium Level 8.2 MG/DL (8.5-10.1) Imaging Last Impressions Tibia/Fibula X-Ray 10/01/16 0237 Signed Impressions: Service Date/Time: Saturday, October 01, 2016 02:36 - CONCLUSION: Posterior superior calcaneal fracture with 2 displaced fragments. Jamal Amin MD Foot X-Ray 10/01/16 0000 Signed Impressions: Service Date/Time: Saturday, October 01, 2016 09:03 - CONCLUSION: Status post open rigid internal fixation. Michael Scott MD Ankle X-Ray 09/30/16 2205 Signed Impressions: Service Date/Time: Friday, September 30, 2016 22:21 - CONCLUSION: Comminuted, superiorly displaced fracture of the posterior calcaneus including the Achilles insertion. Popeye Bryant MD PE at Discharge GENERAL: This is a well-nourished, well-developed patient, in no apparent distress. Awake and alert. SKIN: No rashes, ecchymoses or lesions. Cool and dry. HEAD: Atraumatic. Normocephalic. EYES: Pupils equal round and reactive. Extraocular motions intact. No scleral icterus. No injection or drainage. ENT: Nose without bleeding, purulent drainage or septal hematoma. Throat without erythema, tonsillar hypertrophy or exudate. Uvula midline. Airway patent. NECK: Trachea midline. No lymphadenopathy. Supple, nontender, no meningeal signs. CARDIOVASCULAR: Regular rate and rhythm without murmurs, gallops, or rubs. RESPIRATORY: Clear to auscultation. Breath sounds equal bilaterally. No wheezes , rales, or rhonchi. GASTROINTESTINAL: Abdomen soft, non-tender, nondistended.No guarding. MUSCULOSKELETAL: Extremities without clubbing, cyanosis, or edema. Right lower extremity in splint. Able to wiggle toes on the right lower extremity. Sensation grossly intact distally. NEUROLOGICAL: Awake and alert. Able to move all extremities. Normal speech. Pt update on day of discharge Patient seen and examined on the day of discharge per patient reports she's feeling well. She is looking forward to going home. She denies any complaints overnight. She denies any fever or chills. Denies any nausea, vomiting or abdominal pain. Denies any chest pain or shortness of breath. Discussed with patient in detail her poorly controlled diabetes with a hemoglobin A1c level of 10.7. Patient is agreeable to starting oral medications at this time and she' ll be discharged with prescription for metformin. Hospital Course Patient was admitted with a right calcaneus fracture and was seen in consultation by Dr. Rdz of orthopedic surgery and underwent an ORIF of the right calcaneus in 10/01/16. Patient tolerated the procedure well without any complications. Patient's postoperative course was unremarkable. She was seen the following day by Nawaf HERNÁNDEZ for ortho who cleared patient for discharge with instructions to remain nonweightbearing on the right lower extremity, maintain the splint at all times and elevated the leg for swelling. Patient able to participate with therapy prior to discharge. Patient was given a rolling walker for home use prior to discharge. Patient was instructed to follow-up with her primary care physician in one week specifically to discuss ongoing diabetic management as she had elevated hemoglobin A1c of 10.7 indicating her diabetes was poorly controlled. She was started on metformin 500 mg twice a day. Additionally, she was instructed to follow-up with Dr. Rdz or the PA in 2 weeks as an outpatient. Pt Condition on Discharge: Good Discharge Disposition: Discharge Home Discharge Time: > 30 minutes Discharge Instructions DIET: Follow Instructions for: Diabetic Diet Activities you can perform: Non Weight Bearing (Right lower extremity. Keep the splint on at all times. Elevate the leg for swelling. No driving.) Follow up Referrals: Orthopedics - 10/15/16 @ [facility] with Davey Rdz MD PCP Follow-up - 1 Week New Medications: Docusate Sodium (Docusate Sodium) 100 Mg Cap 100 MG PO BID PRN CONSTIPATION #30 Ref 0 CAP Hydrocodone-Acetaminophen (Hydrocodone-Acetaminophen) 7.5-325 mg Tab 1 TAB PO Q4H PRN PAIN #60 Ref 0 TAB Metformin (Metformin) 500 Mg Tab 500 MG PO BIDPC With meals Blood Sugar Management #60 Ref 0 TAB Walker/Adult/Folding (Walker/Adult/Folding) 1 Mis Mis 1 EA .ROUTE DIRECTED #1 Ref 0 EA Cristel Hays Oct 02, 2016 12:26
[2016-10-02 14:16] VITALS: O2SAT 96
== END 2016-10-02 15:18 | disposition home or self-care (01) | DRG 505 ==
LOC: NEPE 21:43 → NEDA 10-01 04:06 → OBSVTOIN 10-01 05:05 → N06A 10-01 18:32
PROVIDERS: ADMIT Hospitalist; ATTEND Hospitalist
PROC: 3E0T3CZ (ICD-10-PCS; 2016-10-01)
PROC: 0QSL04Z Reposition Right Tarsal with Internal Fixation Device, Open Approach (ICD-10-PCS; principal; 2016-10-01 08:03)
DX: S92.001A Unspecified fracture of right calcaneus, initial encounter for closed fracture (principal); E11.65 Type 2 diabetes mellitus with hyperglycemia; D64.9 Anemia, unspecified; W01.0XXA Fall on same level from slipping, tripping and stumbling without subsequent striking against object, initial encounter; Y92.830 Public park as the place of occurrence of the external cause; G89.29 Other chronic pain; Y93.83 Activity, rough housing and horseplay
CPT/HCPCS: 29515; 73590; 73610; 73650; 76000; 80048; 80053; 82550; 82948; 83036; 85025; 85610; 85730; 93005; 94150; 96360; C1713; J0131; J0690; J1580; J1815; J2250; J2270; J2405; J2710; J3010; J3370; J7030; J7050; J7120

== ENCOUNTER → 2016-11-20 | Outpatient (CLI) | payer SELFPAY ==
[~2016-11-20] MED LIST: DOCU100C PO; HYDR-3580 PO; METF500T PO; WALKER/ADULT/FO1 MIS
== END ==
LOC: HORT 14:45
PROVIDERS: ATTEND Physician Assistant
DX: Z47.89 Encounter for other orthopedic aftercare (principal)
CPT/HCPCS: L2114